=== PATIENT | female | born 1965 ===

== ENCOUNTER 2024-09-29 07:00 | Day surgery (SDC) | payer OTHER ==
[~2024-09-29 07:00] MED LIST: ALLEGRA ALLERG180 MG PO; ATORVASTATIN CA80 MG PO; HYDROCHLOROTHIA25 MG PO; LOSARTAN POTAS100 MG PO; METFORMIN HCL850 MG; NORVASC5 MG PO; OPTIMAL D31250 MCG PO; PEPCID40 MG PO; PRILOSEC10 MG PO; SYNTHROID75 MCG PO; WELLBUTRIN XL150 M1 PO; ZOLOFT100 MG PO
[2024-09-29] MEDS ORDERED: BUPIVACAINE HCL 30 ML VIAL IJ ONE (13:15)
[2024-09-29] MEDS ORDERED: HEMOSTATIC MATRIX 1 KIT KIT TOP ONE (13:15)
[2024-09-29] MEDS ORDERED: POVIDONE-IODINE 118 ML BOTT TOP ONE (13:15)
[2024-09-29] MEDS ORDERED: LIDOCAINE HCL 1%/EPINEPHRINE 20ML VIAL IJ ONE (13:15)
[2024-09-29] MEDS ORDERED: METRONIDAZOLE/SODIUM CHLORIDE 500 MG/100 ML PIGGYBACK IV ONE (13:15)
[2024-09-29] MEDS ORDERED: DIBUCAINE 15 GM OINT..GM. TUBE RECTAL ONE (13:15)
[2024-09-29] MEDS ORDERED: CEFTRIAXONE SODIUM 2,000 MG VIAL IV ONE (13:15)
== END 2024-09-29 16:05 | disposition home or self-care (01) ==
LOC: CIR.AMB 07:00
PROVIDERS: ATTEND Colon & Rectal Surgery
DX: D12.8 Benign neoplasm of rectum (principal); D12.9 Benign neoplasm of anus and anal canal; K64.2 Third degree hemorrhoids; F41.9 Anxiety disorder, unspecified; K64.4 Residual hemorrhoidal skin tags